=== PATIENT | female | born 1995 | race Caucasian/White ===

== ENCOUNTER 2017-02-08 18:06 | Inpatient (IN) | payer MEDICAID, OTHER ==
[~2017-02-08] VITALS: Ht 172.7 cm; Wt 80.8 kg
[2017-02-08] MEDS ORDERED: ACETAMINOPHEN 325 MG TABLET PO ONE (19:15)
[2017-02-08 19:30] LABS: BASOPHILS % (AUTO) 0.5 % (0.0-2.0); EOSINOPHILS % (AUTO) 0.4 % (1.0-6.0); HEMATOCRIT 37.5 % (36-46); LYMPHOCYTES # (AUTO) 1.9 K/uL (1.0-4.8); LYMPHOCYTES % (AUTO) 21.3 % (22.0-44.0); MEAN CORPUSCULAR HEMOGLOBIN 25.5 pg (26.0-34.0); MEAN CORPUSCULAR VOLUME 80 fL (80-100); MONOCYTES # (AUTO) 0.5 K/uL (0.1-1.0); MONOCYTES % (AUTO) 5.4 % (2.0-9.0); NEUTROPHILS # (AUTO) 6.6 K/uL (1.8-7.7); NEUTROPHILS % (AUTO) 72.4 % (40.0-70.0); PLATELET COUNT (AUTO) 321 K/uL (150-450); RED BLOOD CELL COUNT(AUTO) 4.71 MIL/uL (4.00-5.20); WHITE BLOOD COUNT (AUTO) 9.1 K/uL (4.5-11.0)
[2017-02-08 19:46] LABS: ANION GAP 15 mmol/L (8-16); CALCIUM, TOTAL 9.5 mg/dL (8.8-10.5); CARBON DIOXIDE 24 mmol/L (22-29); CHLORIDE 100 mmol/L (98-107); CREATININE 0.87 mg/dL (0.60-1.30); GLOMERULAR FILTR. RATE CALC > 60 mL/min (>60); POTASSIUM 3.5 mmol/L (3.5-5.1); SODIUM SERUM 139 mmol/L (136-145); UREA NITROGEN, BLOOD 9 mg/dL (7-18)
[2017-02-08 19:52] LABS: ALANINE AMINOTRANSFERASE 28 U/L (12-78); ALBUMIN 4.3 g/dL (3.4-5.0); ASPARTATE AMINOTRANSFERASE 25 U/L (15-37); BILIRUBIN,TOTAL 0.3 mg/dL (0.1-1.0); TOTAL PROTEIN, SERUM 8.5 g/dL (6.4-8.2)
[2017-02-08] MEDS ORDERED: ZOLPIDEM TARTRATE 10 MG TABLET PO PRN (21:00)
[2017-02-08] MEDS ORDERED: LORazepam 2 MG TABLET PO ONE (21:00)
[2017-02-08 21:03] VITALS: BP 131/99
[2017-02-08 22:24] VITALS: BP 111/79
[2017-02-08 22:41] LABS: APPEARANCE,URINE CLEAR (CLEAR); GLUCOSE, URINE (UA) NEGATIVE (NEGATIVE); KETONES,URINE NEGATIVE (NEGATIVE); LEUKOCYTE ESTERASE ,URINE NEGATIVE (NEGATIVE); OCCULT BLOOD,URINE NEGATIVE (NEGATIVE); PROTEIN,URINE NEGATIVE (NEGATIVE)
[2017-02-08 22:43] LABS: ADD UA MICROSCOPIC NO
[2017-02-09] MEDS: LEVOTHYROXINE SODIUM 125 MCG TABLET PO SCH (06:45)
[2017-02-09 07:38] LABS: THYROID STIMULATING HORMONE 2.78 uIU/mL (0.36-3.74)
[2017-02-09] MEDS: LORazepam 2 MG TABLET PO PRN ×2 (07:38→22:45)
[2017-02-09 08:00] VITALS: BP 97/58
[2017-02-09] MEDS ORDERED: ONDANSETRON HCL 4 MG TABLET PO PRN (08:45)
[2017-02-09] MEDS: SERTRALINE HCL 50 MG TABLET PO SCH (12:24)
[2017-02-09 19:08] VITALS: BP 109/55
[2017-02-10] MEDS: LEVOTHYROXINE SODIUM 125 MCG TABLET PO SCH (06:30)
[2017-02-10] MEDS: SERTRALINE HCL 50 MG TABLET PO SCH (09:02)
[2017-02-10 09:07] VITALS: BP 106/71
[2017-02-10] MEDS: LORazepam 2 MG TABLET PO PRN (16:13)
[2017-02-10 16:52] VITALS: BP 115/76
[2017-02-11] MEDS: LEVOTHYROXINE SODIUM 125 MCG TABLET PO SCH (06:07)
[2017-02-11 08:00] VITALS: BP 101/52
[2017-02-11] MEDS: SERTRALINE HCL 50 MG TABLET PO SCH (09:15)
[2017-02-11 16:43] VITALS: BP 111/72
[2017-02-11] MEDS: LORazepam 2 MG TABLET PO PRN (20:17)
[2017-02-11] MEDS ORDERED: RisperiDONE 1 MG TABLET PO SCH (21:00)
[2017-02-12] MEDS: LEVOTHYROXINE SODIUM 125 MCG TABLET PO SCH (06:37)
[2017-02-12] MEDS: SERTRALINE HCL 50 MG TABLET PO SCH (09:03)
[2017-02-12] MEDS ORDERED: RISP1 PO (09:08)
[2017-02-12] MEDS ORDERED: SERT50TA12 PO (09:08)
[2017-02-12] MEDS ORDERED: LEVO125 PO (09:10)
== END 2017-02-12 13:00 | disposition home or self-care (01) | DRG 751 ==
LOC: EMS 18:09 → 3EI 21:15
DX: F33.2 Major depressive disorder, recurrent severe without psychotic features (principal); R45.851 Suicidal ideations; E03.9 Hypothyroidism, unspecified; K52.9 Noninfective gastroenteritis and colitis, unspecified
CPT/HCPCS: 84436; 84439; 84443; 99285; G0480; Q0162